=== PATIENT | female | born 2000 | race Caucasian/White ===

== ENCOUNTER 2018-05-08 01:28 | Emergency (ER) | payer MEDICAID ==
[~2018-05-08] VITALS: Ht 167.6 cm; Wt 93.0 kg
[2018-05-08 01:31] VITALS: BP 110/68
--- NOTE | 2018-05-08 01:43 | NUR ---
PT TO BED 4 AMBULATORY.
--- NOTE | 2018-05-08 01:44 | NUR ---
PT PRESENTED ER WITH C/O PAIN IN THE BACK/ RIB CAGE/FLANK PAIN X 1 DAY. PT DENIES VOMITING AND NAUSEA. LUNG SOUNDS CLEAR BILAT. ALLERGIES TO PENICILLIN. NO PREVIOUS MEDICAL HX.SKIN IS PINK/WARM/DRY; AAOX4 WITH EVEN AND STEADY GAIT; HR EVEN AND REGULAR; PT DENIES ANY FEVER, CP, SOB, OR COUGH AT THIS TIME; PATIENT STATES PAIN OF 8/10 AT THIS TIME; VSS; PATIENT POSITIONED FOR COMFORT; HOB ELEVATED; BEDRAILS UP X2; BED DOWN. ER MD MADE AWARE OF PT STATUS.
[2018-05-08] MEDS ORDERED: KETOROLAC 30 MG/ML VIAL IM ONE (03:10)
[2018-05-08 03:25] VITALS: BP 112/66
--- NOTE | 2018-05-08 03:25 | NUR ---
Patient discharged with v/s stable. Written and verbal after care instructions given and explained. Patient alert, oriented and verbalized understanding of instructions. Ambulatory with steady gait. All questions addressed prior to discharge. ID band removed. Patient advised to follow up with PMD. Rx of CIPRO, NAPROSYN AND ACETAMINOPHEN WAS given. Patient educated on indication of medication including possible reaction and side effects. Opportunity to ask questions provided and answered.
== END 2018-05-08 03:25 | disposition home or self-care (01) ==
LOC: MED 01:28
DX: N39.0 Urinary tract infection, site not specified (principal); Z88.0 Allergy status to penicillin
CPT/HCPCS: 81002; 81025; 96372; 99283; J1885

== ENCOUNTER 2018-05-21 23:00 | Emergency (ER) | payer MEDICAID ==
[~2018-05-21] VITALS: Ht 167.6 cm; Wt 95.3 kg
[2018-05-21 23:03] VITALS: BP 115/75
[2018-05-22 00:16] VITALS: BP 112/79
== END 2018-05-22 00:17 | disposition home or self-care (01) ==
LOC: MED 23:00
DX: J06.9 Acute upper respiratory infection, unspecified (principal); Z88.0 Allergy status to penicillin
CPT/HCPCS: 87081; 99284

== ENCOUNTER 2018-05-26 23:36 | Emergency (ER) | payer MEDICAID ==
[~2018-05-26] VITALS: Ht 167.6 cm; Wt 93.0 kg
[2018-05-26 23:49] VITALS: BP 116/60
--- NOTE | 2018-05-26 23:50 | NUR ---
TO BED # 9 AMBULATORY, REPORT GIVEN TO XIOMY GUTIERREZ
[2018-05-26 23:59] VITALS: BP 116/60
--- NOTE | 2018-05-27 | NUR ---
PATIENT PRESENTS TO ED WITH VAG BLEEDING FOR 2 DAYS, CRAMPING, HEADACHE, VOMITING, LMP MAY 08. SKIN IS PINK/WARM/DRY; AAOX4 WITH EVEN AND STEADY GAIT; LUNGS CLEAR BL; HR EVEN AND REGULAR; PATIENT STATES PAIN OF 8/10 AT THIS TIME; VSS; PATIENT POSITIONED FOR COMFORT; HOB ELEVATED; BEDRAILS UP X2; BED DOWN.
--- NOTE | 2018-05-27 00:20 | NUR ---
LAB AT BEDSIDE
[2018-05-27 00:30] LABS: BASOPHILS # (AUTO) 0.1 K/uL (0.00-0.22); BASOPHILS % (AUTO) 0.8 % (0.0-2.0); EOSINOPHILS # (AUTO) 0.6 K/uL (0-0.4); EOSINOPHILS % (AUTO) 5.6 % (0.0-4.0); HEMATOCRIT 34.4 % (36-48); LYMPHOCYTES # (AUTO) 2.9 K/uL (2.5-16.5); LYMPHOCYTES % (AUTO) 26.7 % (20.5-51.1); MEAN CORPUSCULAR HEMOGLOBIN 23 pg (27-31); MEAN CORPUSCULAR HGB CONC 32 g/dL (33-37); MEAN CORPUSCULAR VOLUME 72.6 fL (80-94); MONOCYTES # (AUTO) 1.1 K/uL (0.8-1.0); MONOCYTES % (AUTO) 9.9 % (1.7-9.3); NEUTROPHILS # (AUTO) 6.1 K/uL (1.8-7.7); PLATELET COUNT (AUTO) 409 K/uL (140-450); RED BLOOD CELL COUNT(AUTO) 4.74 MIL/uL (4.20-5.40); RED CELL DISTRIBUTION WIDTH 16.6 % (11.6-13.7); WHITE BLOOD COUNT (AUTO) 10.7 K/uL (4.5-11.0)
[2018-05-27 00:44] LABS: ANION GAP 6.4 (8-16); CARBON DIOXIDE 30.2 mmol/L (21-32); CREATININE 0.7 mg/dL (0.6-1.3); POTASSIUM 3.6 mmol/L (3.5-5.1)
[2018-05-27 00:50] LABS: ALBUMIN 3.6 g/dL (3.4-5.0); TOTAL BILIRUBIN 0.1 mg/dL (0.0-1.0)
--- NOTE | 2018-05-27 01:29 | NUR ---
Patient discharged with v/s stable. Written and verbal after care instructions given and explained. Patient alert, oriented and verbalized understanding of instructions. Ambulatory with steady gait. All questions addressed prior to discharge. ID band removed. Patient advised to follow up with PMD. Rx of PROMETHAZINE, MOTRIN AND ZOFRAN given. Patient educated on indication of medication including possible reaction and side effects. Opportunity to ask questions provided and answered.
== END 2018-05-27 01:30 | disposition home or self-care (01) ==
LOC: MED 23:36
DX: N94.6 Dysmenorrhea, unspecified (principal); R11.10 Vomiting, unspecified; Z88.0 Allergy status to penicillin
CPT/HCPCS: 36415; 80053; 81002; 81025; 84702; 85025; 99284